=== PATIENT | female | born 1960 | race Caucasian/White ===

== ENCOUNTER → 2022-10-12 | Day surgery (SDC) | payer OTHER ==
[~2022-10-12] MED LIST: BUPIVACAINE 0.25% 30ML SDV ONE; CALCIUM CARBON500 MG PO; COQ-10100 MG PO; CRESTOR10 MG PO; DEXAMETHASONE SOD PHOS 10 MG/1 ML VIAL ONE; EFFEXOR XR150 MG PO; FISH OIL 1,0001 EAC7 PO; HYDROCODON-ACE1 EA12; IOPAMIDOL 200 MG/ML 20 ML VIAL IT ONE; KETAMINE HCL INJ 50 MG/ML 10 ML VIAL ONE; LACTATED RINGER'S 1,000 ML ONE; LIDOCAINE HCL 1% 30ML-PF VIAL ONE; LIDOCAINE HCL 2% LOCAL INJ 5 ML SDV VIAL INJ ONE; METHOCARBAMOL750 MG PO; MULTI-VITAMIN1 EACH PO; OMEPRAZOLE40 MG PO; ONDANSETRON HCL INJ 2MG/ML 2ML 2 MG/ML VIAL ONE; POVIDONE IODINE 0.05% 0.05 % ML PO ONE; PROPOFOL IV EMULSION 10 MG/ML 20 ML VIAL ONE; TRAZODONE HCL50 MG PO; VITAMIN D310 MCG PO; XYZAL5 MG PO
[2022-10-12 07:15] VITALS: TEMP 98.7
[2022-10-12 07:45] VITALS: BP 160/90; PULSE 70; RESP 16; O2SAT 96
== END | disposition home or self-care (01) ==
LOC: OR 07:24
PROVIDERS: ATTEND Physical Medicine & Rehabilitation Pain Medicine
DX: M54.16 Radiculopathy, lumbar region (principal); E78.00 Pure hypercholesterolemia, unspecified; Z88.0 Allergy status to penicillin; Z01.810 Encounter for preprocedural cardiovascular examination; Z79.82 Long term (current) use of aspirin; Z79.899 Other long term (current) drug therapy
CPT/HCPCS: 64483; 93005; J1100; J2001 ×2; J2405; J2704; J7121; Q9967; 77003

== ENCOUNTER → 2022-11-02 | Day surgery (SDC) | payer OTHER ==
[~2022-11-02] MED LIST changes: -KETAMINE HCL INJ 50 MG/ML 10 ML VIAL ONE; -ONDANSETRON HCL INJ 2MG/ML 2ML 2 MG/ML VIAL ONE
[2022-11-02 06:44] VITALS: TEMP 98.2
[2022-11-02 07:00] VITALS: BP 135/73; PULSE 73; RESP 16; O2SAT 97
== END | disposition home or self-care (01) ==
LOC: OR 07:28
PROVIDERS: ATTEND Physical Medicine & Rehabilitation Pain Medicine
DX: M54.16 Radiculopathy, lumbar region (principal); G47.33 Obstructive sleep apnea (adult) (pediatric); K21.9 Gastro-esophageal reflux disease without esophagitis; E78.00 Pure hypercholesterolemia, unspecified; Z88.0 Allergy status to penicillin; Z79.899 Other long term (current) drug therapy; Z87.891 Personal history of nicotine dependence
CPT/HCPCS: 64483; 64484; J1100; J2001 ×2; J2704; J7121; Q9967; 77003